=== PATIENT | female | born 1940 | race Caucasian/White ===

== ENCOUNTER → 2019-01-01 | Outpatient (CLI) | payer OTHER ==
[~2019-01-01] VITALS: Ht 167.6 cm; Wt 55.8 kg
[~2019-01-01] MED LIST: ASPIRIN325 PO; BENICAR20 MG PO; CALCIUM 500+D1 EAC2 PO; CO Q-10200 MG PO; FISH OIL SOFTG1 EACH PO; LIVALO4 MG PO; LORTAB 5 MG/5001 TAB PO; MEDROLDOSEPACK PO; NITROQUICK0.4 MG PO; OMEGA-3 KRILL1 EACH PO; OXYCONTIN; PERCOCET; PERCOCET 5-3251 EACH PO; PLAVIX 75 MG TA75 MG PO; TOPROL XL25 MG PO; VALIUM5 MG PO
[2019-01-01 07:28] LABS: HEMATOCRIT 40.5 % (37.0-47.0); HEMOGLOBIN 13.5 gm/dL (12.0-15.0); MCH 29.3 pg (26.0-34.0); MCHC 33.4 g/dL (28.0-37.0); MCV 87.7 fL (80.0-100.0); RBC 4.63 mil/uL (4.20-5.00); RDW 13.8 % (10.5-14.5)
[2019-01-01 07:29] VITALS: BP 166/79
[2019-01-01 07:40] LABS: CALCIUM 10.1 mg/dL (8.5-10.1); CREATININE 0.9 mg/dL (0.6-1.0); POTASSIUM 4.5 mmol/L (3.5-5.1)
--- NOTE | 2019-01-01 17:34 | EKG ---
[place] [address] [facility] [place] [address] ELECTROCARDIOGRAM REPORT Name: ZUHAIR MCKENNA Room #: REG [facility]New [facility] CenterAdore[facility] [id number] Admission: 01/01/19 Attend Phys: Carlos Rasmussen MD, Discharge: Date of : 40 Report #: [id number] THIS REPORT FOR: //name// [facility] Test Date: 2019-01-01 Test Time: 07:25:29 Pat Name: ZUHAIR MCKENNA Department: Room: Gender: F Boatswain'S Mate: Evaristo PETERSON : 1940 Requested By: Carlos Rasmussen Order Number: [id number] MD: Vlad Haines Measurements Intervals [place] Rate: 83 P: 89 AL: 136 QRS: 48 QRSD: 83 T: 54 QT: 361 QTc: 425 Interpretive Statements Sinus rhythm Nonspecific ST segment abnormality Compared to ECG 12/16/2010 08:18:37 Anterior lateral T wave abnormality is less pronounced Electronically Signed On 01-01-2019 17:33:48 CDT by Vlad Haines [email or web address] <ELECTRONICALLY SIGNED> By: Vlad Haines MD, [facility] 01/01/19 1733 4 4 Vlad Haines MD, [facility] /EPI
--- NOTE | 2019-01-01 22:46 | CATHLAB ---
[facility] [place] [address] INVASIVE PROCEDURE REPORT Name: CLARISAZUHAIR Room #: REG Callie#: [id number] Admission: 01/01/19 Attend Phys: Carlos Rasmussen, Discharge: Date of : 40 Report #: [id number] THIS REPORT FOR: //name// APPROVED REPORT Study performed: 01/01/2019 07:39:19 Patient Details Patient Status: Out-Patient Room #: The patient is a 78 year-old female Event Personnel Carlos Rasmussen Oracle Bpm Developer, Michela Banuelos RN, Rosa Dowell Paschal, Ja'net [employer] Monitor, Ronaldo Fernando Monitor Procedures Performed Left Heart Cath w/or w/o Coronaries [id number] [facility] Aortogram Abdominal Peripheral Angio 563801 Renal Bilateral Peripheral Angiography 6021130 CVRENALBIL Indication Chest pain Procedure Narrative The Right Groin^ was infiltrated with 1% Lidocaine subcutaneous anesthesia. A PINNACLE 6FR Sheath #[id number] sheath was inserted into the RFA^. Coronary angiography was performed using coronary diagnostic catheters. The right coronary system was accessed and visualized with a JR4 catheter. The left coronary system was accessed and visualized with a JL4 catheter. The left ventricle was accessed and visualized with a PIGTAIL catheter. Left ventriculogram was performed in 30 degree projection. An aortogram of the abdominal aorta was performed. Closure device was deployed with a 6 Fr MYNXGRIP 6/7F #[id number]. The patient tolerated the procedure well and there were no complications associated with the procedure. There was no hematoma. Intraoperative Conscious Sedation Sedation start time: 8.30 Case end Time: 9.0 Fentanyl 75 mcg Versed 1 mg Fluoro Time: 5.25 minutes Dose: DAP 2079.40 cGycm2 249 mGy Contrast Type and Amount: Omnipaque 130 ml [facility] [place] [address] INVASIVE PROCEDURE REPORT Name: ZUHAIR MCKENNA Room #: ZULY Ledesma#: [id number] Admission: 01/01/19 Attend Phys: Carlos NaliniAdore Rasmussen, Discharge: Date of : 40 Report #: [id number] Hemodynamics The aortic pressure is 192/62 mmHg with a mean of 76 mmHg. The left ventricular pressure is 175/5 mmHg with a mean of mmHg. The left ventricular end diastolic pressure is 24 mmHg. Conclusion #1 normal left ventricular size and systolic function EF 60% #2 abdominal aortogram with mild ectasia question of a left renal artery stenosis. 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 #5 dominant circumflex artery with proximal diffuse disease in a multiple small marginal branches the proximal circumflex is eccentric lesion of 30-40% and then large distal vasculature which is patent. 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 #7 selective bilateral renal artery angiography root reveals mild ostial disease. Recommendations and plan: Continue aggressive risk factor modification. No indication for coronary intervention. We'll follow discharge protocol. <ELECTRONICALLY SIGNED> By: Carlos Rasmussen MD, [facility] 01/01/192245 45 45 Carlos Rasmussen MD, FACC /INF
== END | disposition home or self-care (01) ==
LOC: CATH 06:32
PROVIDERS: Internal Medicine Cardiovascular Disease
DX: R07.9 Chest pain, unspecified (principal); I25.10 Atherosclerotic heart disease of native coronary artery without angina pectoris; I70.1 Atherosclerosis of renal artery; I77.811 Abdominal aortic ectasia; I10 Essential (primary) hypertension; I25.2 Old myocardial infarction; F32.9 Major depressive disorder, single episode, unspecified; M19.90 Unspecified osteoarthritis, unspecified site; Z98.890 Other specified postprocedural states; Z79.899 Other long term (current) drug therapy; Z79.82 Long term (current) use of aspirin

== ENCOUNTER → 2020-01-01 | Outpatient (CLI) | payer OTHER | LOC: SJCVC 13:03 | PROVIDERS: ATTEND Internal Medicine Cardiovascular Disease | DX: R94.31 Abnormal electrocardiogram [ECG] [EKG] (principal); I25.10 Atherosclerotic heart disease of native coronary artery without angina pectoris; I77.9 Disorder of arteries and arterioles, unspecified; E78.00 Pure hypercholesterolemia, unspecified; I10 Essential (primary) hypertension; R09.89 Other specified symptoms and signs involving the circulatory and respiratory systems; R94.39 Abnormal result of other cardiovascular function study ==

== ENCOUNTER → 2020-07-29 | Outpatient (CLI) | payer OTHER | LOC: SJCVCIMAG 07:55 | PROVIDERS: ATTEND Internal Medicine Cardiovascular Disease | DX: I08.3 Combined rheumatic disorders of mitral, aortic and tricuspid valves (principal); I27.20 Pulmonary hypertension, unspecified; I11.9 Hypertensive heart disease without heart failure; R94.31 Abnormal electrocardiogram [ECG] [EKG]; I25.10 Atherosclerotic heart disease of native coronary artery without angina pectoris; I77.9 Disorder of arteries and arterioles, unspecified; E78.00 Pure hypercholesterolemia, unspecified; E78.5 Hyperlipidemia, unspecified; Z95.5 Presence of coronary angioplasty implant and graft; Z79.899 Other long term (current) drug therapy; Z82.49 Family history of ischemic heart disease and other diseases of the circulatory system ==

== ENCOUNTER → 2020-09-16 | Outpatient (CLI) | payer OTHER | LOC: SJCVCIMAG 08:21 | PROVIDERS: ATTEND Internal Medicine Cardiovascular Disease | DX: R94.31 Abnormal electrocardiogram [ECG] [EKG] (principal); I10 Essential (primary) hypertension; N28.1 Cyst of kidney, acquired; I25.10 Atherosclerotic heart disease of native coronary artery without angina pectoris; E78.00 Pure hypercholesterolemia, unspecified; I77.9 Disorder of arteries and arterioles, unspecified; I38 Endocarditis, valve unspecified; E78.5 Hyperlipidemia, unspecified; Z95.5 Presence of coronary angioplasty implant and graft; Z79.82 Long term (current) use of aspirin; Z79.899 Other long term (current) drug therapy; Z82.49 Family history of ischemic heart disease and other diseases of the circulatory system ==

== ENCOUNTER → 2020-12-21 | Outpatient (CLI) | payer OTHER | LOC: SJCVCIMAG 09:09 | PROVIDERS: ATTEND Internal Medicine Cardiovascular Disease | DX: I34.0 Nonrheumatic mitral (valve) insufficiency (principal); I25.10 Atherosclerotic heart disease of native coronary artery without angina pectoris; R06.00 Dyspnea, unspecified; R53.83 Other fatigue; Z95.2 Presence of prosthetic heart valve ==